=== PATIENT | male | born 1980 | race Caucasian/White ===

== ENCOUNTER 2022-01-06 14:54 | Outpatient (CLI) | payer OTHER, SELFPAY ==
--- NOTE | 2022-01-06 15:01 | RAD_ITS ---
EXAM: XR RIGHT SHOULDER COMPLETE, 2 OR MORE VIEWS CLINICAL INDICATION: PAIN TECHNIQUE: Two or more views of the right shoulder. This report was created using [employer] report generation technology. COMPARISON: None. FINDINGS: BONES/JOINTS: No acute underlying fracture or malalignment. Congenital lateral downsloping of the acromion with narrowing of the subacromial space to 6 mm peripherally. Type II acromion with curved undersurface. No subacromial enthesophyte. Mild degenerative changes of the acromioclavicular joint. No sclerotic or destructive changes observed. SOFT TISSUES: Unremarkable. No soft tissue swelling or gas. No radiopaque foreign body. RAD/Shoulder min 2 Views IMPRESSION: Congenital lateral downsloping of the acromion with narrowing of the subacromial space to 6 mm peripherally. Mild degenerative changes of the acromioclavicular joint. No acute osseous abnormalities. Electronically Signed: Rodger Taveras MD at 3:36 EST ,
== END 2022-01-06 23:59 | disposition home or self-care (01) ==
PROVIDERS: PCP Family Medicine; Referring Provider Family Medicine; Visit Provider Family Medicine
DX: M25.511 Pain in right shoulder (principal)
CPT/HCPCS: 73030

== ENCOUNTER → 2022-02-24 | Outpatient (CLI) | payer OTHER, SELFPAY ==
--- NOTE | 2022-02-24 08:30 | RAD_ITS ---
CLINICAL HISTORY: Male, 41 years old. Right shoulder instability. Probable labral tear. PROCEDURE: ARTHROGRAM - RIGHT SHOULDER CONSENT: The procedure as well as benefits and possible complications including infection and bleeding were explained to the patient. Informed consent was obtained. FLUOROSCOPY TIME (if supplied): (30 seconds) minutes/seconds Injection Information: 10 cc of dilute MRI contrast. Number of images obtained: 3 TECHNIQUE: (All elements of maximal sterile barrier technique followed, including US elements as applicable) The patient was in the supine position. The overlying skin was prepped and draped in the usual sterile fashion. Following local anesthetic application and under direct fluoroscopic guidance, a 22-gauge spinal needle was placed into the shoulder joint. 2 cc of ISOVUE 300 was injected for confirmation. Following this, 10 cc of dilute MRI contrast was injected. MRI will follow. The patient tolerated the procedure well. RAD/Arthrogram Shoulder w/ MRI IMPRESSION: Successful right shoulder arthrogram for MRI examination. The patient tolerated the procedure well. Electronically Signed: Italo Lopez MD at 10:37 EST ,
--- NOTE | 2022-02-24 09:06 | MRI_ITS ---
INDICATION: SHOULDER INSTABILITY, LABRAL TEAR EXAMINATION: MRI - RIGHT MR Shoulder W/ Contrast TECHNIQUE: Multiplanar and multisequence MR images of the right shoulder following intra-articular injection of iodinated contrast. IV Contrast Dosage and Agent: None. COMPARISON: Fluoroscopic arthrogram 02/24/2022. Right shoulder radiograph 01/06/2022 FINDINGS: BONE: No fracture or abnormal bone marrow signal. ACROMIOCLAVICULAR JOINT: Normal alignment. Mild inferolateral acromial tilt. Coracoclavicular ligaments are intact. Minimal degenerative osteophyte formation compatible with age. SUBACROMIAL-SUBDELTOID SPACE: Large volume subacromial subdeltoid bursal contrast noted. GLENOHUMERAL JOINT: Intra-articular contrast present. Articular cartilage intact. Normal alignment. Glenohumeral ligaments are grossly intact. ROTATOR CUFF: Full thickness incomplete tear of supraspinatus tendon along 1.4 centimeters of the anterior footplate with retraction of the anterior fibers approximately 1.1 cm. Infraspinatus, subscapularis, and teres minor appear intact. Mild intramuscular edema along the anterior supraspinatus myotendinous junction. LABRUM: Findings compatible with superior labral anterior posterior tear from the 12:00 to 3:00 position (anterior being 3:00) BICEPS TENDON: The extra-articular biceps tendon is in the bicipital groove. The intra-articular biceps tendon is normal. MRI/Upper Ext Jt Only W/Contrast IMPRESSION: Full-thickness incomplete tear of the anterior fibers supraspinatus tendon with retraction of those anterior fibers. Findings compatible with superior labral anterior posterior tear from the 12:00 to 3:00 position Mild inferolateral acromial tilt which may predispose to impingement. Minimal acromioclavicular degenerative change. Electronically Signed: Michael Sainz MD at 8:16 EST ,
[2022-02-24] MEDS: Lidocaine 2% (5ml sdv) 5 ML VIAL.MPF INFILT (09:10)
== END | disposition home or self-care (01) ==
LOC: RAD 08:25
PROVIDERS: PCP Family Medicine; Visit Provider Orthopaedic Surgery Sports Medicine
DX: M25.311 Other instability, right shoulder (principal); M19.011 Primary osteoarthritis, right shoulder; M75.121 Complete rotator cuff tear or rupture of right shoulder, not specified as traumatic; S43.431A Superior glenoid labrum lesion of right shoulder, initial encounter
CPT/HCPCS: 23350; 73222; 77002; Q9967

== ENCOUNTER 2022-04-09 10:21 | Day surgery (SDC) | payer OTHER, SELFPAY ==
--- NOTE | 2022-04-09 | TESH_PTH ---
PATIENT: KEMAR AVITIA LOC: [facility] [place] U#:[id number] AGE/SX: 42/M ROOM: RE04/09/[address]: Dr. Kyree Mcintyre MD : 1980 BED: DIS: 04/09/2022 SPEC #: [id number] RECD: 04/09/22 14:15 STATUS: NATALY DONN #: [id number] JERAD: 04/09/22 00:[address]: Kyree Mcintyre DEPT: SURGICAL PATHOLOGY RECD BY: Glenroy Burch ENTERED: 04/10/22 08:35 SP TYPE: TENDON OTHR DR: Dr. Liz Hardy MD Tissues: Tendon and tendon sheath, NOS Procedures: Surgery Specimen Level III HEADER OPERATION: Shoulder arthroscopy subacromial decompression rotator cuff PRE-OP DIAGNOSIS: Right rotator cuff tear TISSUE SUBMITTED: Right biceps tendon MICROSCOPIC DIAGNOSIS Right biceps tendon, arthroscopy: A piece of dense fibroconnective tissue with reactive changes. SJ:sam 04/11/2022 MICROSCOPIC DESCRIPTION Slides are reviewed. GROSS DESCRIPTION Received in fixative is one container labeled with the patient's name and designated right biceps tendon. The specimen consists of an elongated piece of agrawal, tendinous tissue measuring 7.5 x 0.7 x 0.5 cm. Teacher Instrumental sections are submitted in one cassette. / SEBASTIAN:sam 04/10/2022 TC:5 [facility]: [id number]
[2022-04-09 10:46] VITALS: BP 118/79; PULSE 74; RESP 18; TEMP 36.9; O2SAT 98; BMI 20.2
[2022-04-09 10:51] LABS: Hematocrit 48.1 % (40-54); Mean Corp Hgb Conc 33.3 g/dL (32-36); Mean Corpuscular Hgb 28.7 pg (27.0-32.0); Mean Corpuscular Volume 86.2 fL (80-94); Mean Platelet Vol. 9.7 fl (6.2-12.0); Platelet Count 256 K/mm3 (150-450); RBC Distribution Width CV 12.9 % (11.6-14.6); RBC Distribution Width SD 40.6 fl (35.1-43.9); Red Blood Count 5.58 M/mm3 (4.6-6.2)
--- NOTE | 2022-04-09 10:51 | PCM.HP.STD ---
HPI - General HPI Narrative KEMAR AVITIA, is a 42 M who presents for right shoulder arthroscopy, RCR, possible biceps tenodesis for slap tear. no changes to h and p. ok to proceed. right shoulder marked. no concerns. narcotic counselling and post op instructions given. MR#: [id number] Acct: [id number] Name:KEMAR GARCIA Rep #: [id number] : 1980 ? ? Provider: Dr. Kyree Mcintyre MD Age/Sex:? 41/M ? ? 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 02/27/22 [History Confirmed 02/27/22] PFSH Medical History?(Updated 02/27/22 @ 14:30 by Kyree Mcintyre MD) Instability of right shoulder joint Right rotator cuff tear Superior labrum uyapvfrj-vv-dqtmwjdpj (SLAP) tear of right shoulder Social History Smoking Status:? Current every day smoker [facility] right shoudler Details: Parts of this documentation were recorded by a scribe, this documentation accurately reflects the service provided and the decisions made by me, Dr. Kyree Mcintyre MD 02/27/22 [id number]. KEMAR AVITIA is a 41 year old M here today for follow-up on right shoulder instability episode and MRI arthrogram.? He had an injury where he fell off a skateboard now few weeks ago.? This is quite a bit of pain on the lateral aspect of the shoulder difficulty with lifting up the arm.? 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 Ortho Exam General General: Yes no acute distress Neurologic: Yes alert and Yes oriented x3 Psychologic: Yes reasonable and appropriate Right Shoulder Skin/Wound: Yes CDI Testing: Positive Hawkin's, Neer's and empty can; Negative Drop Arm SHOULDER: active forward elevation only to 90 degrees refuses to let me push that beyond shoulder height.? He has resisted forward elevation and external rotation strength both 4/5 causing quite a bit of pain on the lateral aspect of the shoulder. Supplemental Info MR#:? [id number] Acct: [id number] Name:? KEMAR AVITIA Rep #: [id number] :?? 1980 M 41 ? From:? ? Michael Sainz MD PCP: Dr. Liz Hardy MD ? Status: REG CLI Study: Upper Ext Jt Only W/Contrast ? Date of Exam: 02/24/22 Exam# [id number] ? Ordering Dr:? Kyree Mcintyre MD INDICATION: SHOULDER INSTABILITY, LABRAL TEAR EXAMINATION: MRI - RIGHT MR Shoulder W/ Contrast TECHNIQUE: Multiplanar and multisequence MR images of the right shoulder following intra-articular injection of iodinated contrast. IV Contrast Dosage and Agent: None. COMPARISON: Fluoroscopic arthrogram 02/24/2022. Right shoulder radiograph 01/06/2022 FINDINGS: BONE: No fracture or abnormal bone marrow signal. ACROMIOCLAVICULAR JOINT: Normal alignment.? Mild inferolateral acromial tilt.? Coracoclavicular ligaments are intact.? Minimal degenerative osteophyte formation compatible with age. SUBACROMIAL-SUBDELTOID SPACE: Large volume subacromial subdeltoid bursal contrast noted. GLENOHUMERAL JOINT: Intra-articular contrast present.? Articular cartilage intact. Normal alignment. Glenohumeral ligaments are grossly intact. ROTATOR CUFF: Full thickness incomplete tear of supraspinatus tendon along 1.4 centimeters of the anterior footplate with retraction of the anterior fibers approximately 1.1 cm. Infraspinatus, subscapularis, and teres minor appear intact.? Mild intramuscular edema along the anterior supraspinatus myotendinous junction. LABRUM: Findings compatible with superior labral anterior posterior tear from the 12:00 to 3:00 position (anterior being 3:00) BICEPS TENDON: The extra-articular biceps tendon is in the bicipital groove. The intra-articular biceps tendon is normal. MRI/Upper Ext Jt Only W/Contrast IMPRESSION: ? Full-thickness incomplete tear of the anterior fibers supraspinatus tendon with retraction of those anterior fibers. ? Findings compatible with superior labral anterior posterior tear from the 12:00 to 3:00 position ? Mild inferolateral acromial tilt which may predispose to impingement. Minimal acromioclavicular degenerative change. ? Electronically Signed: Michael Sainz MD at 8:16 EST , I reviewed the MRI images myself I do agree that there is a full-thickness partial width tear at the leading edge of the supraspinatus tendon that appears an acute tear as well as a likely a SLAP tear. Coding Level of Care Code Off vis,est,level 4 Diagnoses Right rotator cuff tear? M75.101 Superior labrum pneqhkwx-ht-nwlqwewbv (SLAP) tear of right shoulder? S43.431A Time Spent (min) 30 Assessment and Plan Assessment and Plan (1) Right rotator cuff tear: ?Status:?Acute ?Plan: 41-year-old man with an acute injury to his right shoulder a SLAP tear and rotator cuff tear this would generally be recommended for surgery in a young person with a traumatic mechanism.? Other option would be conservative management for rest activity modifications rehabilitation and/or injections and physical therapy.? Discussed the pros and cons risks and benefits of this.? Without surgery this tear may enlarge become worse or become irreparable with time however surgery has its onset of unique complications.? He wishes to go ahead with a right shoulder arthroscopy, subacromial decompression, rotator cuff repair, possible biceps tenodesis. Pros and cons risks and benefits were discussed with the patient including but not limited to infection, pain, stiffness, bleeding, damage to surrounding structures, neurovascular injury, recurrence or retear, failure or wear of hardware or fixation, instability, fracture, deep vein thrombosis and pulmonary embolism, anesthetic risks, patient dissatisfaction, need for further surgery and other risks.? Patient understood and wished to proceed with surgery, and signed the informed consent documentation. [facility] Medical History (Updated 03/26/22 @ 13:51 by Naomi Duran) Alcohol use Dietary restriction Injury of back Instability of right shoulder joint Right rotator cuff tear Smoker Superior labrum cnxsbusp-wp-nrdbxmyyi (SLAP) tear of right shoulder Ulcerative colitis Home Medications acetaminophen 325 mg tablet (Tylenol) 650 mg PO Q4H PRN Pain 03/26/22 [History Last Taken Unknown] naproxen sodium 220 mg tablet (Aleve) 220 mg PO Q12H PRN Pain 03/26/22 [History Last Taken Unknown] Allergy/AdvReac Type Severity Reaction Status Date / Time Penicillins Allergy Unknown Verified 04/09/22 10:45 Surgical History (Updated 03/26/22 @ 13:51 by Naomi Duran) Hx of decompressive lumbar laminectomy Social History Smoking Status: Current every day smoker tobacco type: cigarettes Results Lab / Micro Data Result Diagrams: 04/09/22 10:40
[2022-04-09] MEDS: Lactated Ringers 1,000 ML 15 ML IV ×2 (10:58→12:01)
--- NOTE | 2022-04-09 11:22 | EKG12_ITS ---
Test Reason : PRE OP Blood Pressure : / mmHG Vent. Rate : 071 BPM Atrial Rate : 071 BPM P-R Int : 166 ms QRS Dur : 100 ms QT Int : 374 ms P-R-T Axes : 035 071 060 degrees QTc Int : 406 ms Normal sinus rhythm Normal ECG No previous ECGs available Confirmed by ZACKARY FARIAS, JESSE ([id number]), film editor BLAYNE RODRIGUEZ ([id number]) on 04/15/2022 8:08:02 AM Referred By: Kyree Mcintyre Confirmed By:JESSE RAYMUNDO MD
[2022-04-09] MEDS: Cefazolin 2 GM in 0.9% Normal Saline 100 ML IV (12:01)
[2022-04-09] MEDS: Epinephrine (1 mg/ml) 1 MG/ML VIAL (12:35)
--- NOTE | 2022-04-09 13:46 | OP.PCM_ITS ---
Problems Associated Problem List Diagnoses (1) Superior labrum ljtkvryj-yz-dmoklmbze (SLAP) tear of right shoulder: (2) Right rotator cuff tear: Report of Operation Date of Procedure: 04/09/22 Pre-Operative Diagnosis: right shoulder rotator cuff tear, slap tear Post-Operative Diagnosis: same Surgery/Procedure Performed:: right shoulder arthroscopy, subacromial decompression, rotator cuff repair, subpectoral biceps tenodesis Surgeon: Kyree Mcintyre Type of Anesthesia: Block,Regional and General Anesthesiologist: Jeison Ann Estimated Blood Loss (mL): 50 Description of Procedure: Patient brought to the operating room theater.? Placed supine on the operating room table.? General anesthesia induced.? 2 g IV Ancef administered prior to start of the procedure.? Beanbag positioner used.? Patient placed right side up lateral decubitus.? Axillary roll was used SCDs on the legs all bony prominences appropriately padded.? Upper extremity prepped and draped in the usual sterile fashion with chlorhexidine-based prep solution allowing over 3 minutes drying time prior to draping.? 5 pounds of inline traction with the arm in 35 degrees of abduction was used.? Preoperative timeout performed to confirm the site the patient and the surgery. Began by inserting the arthroscope posteriorly.? Did a diagnostic arthroscopy.? Slap tear from 12-3 oclock as described on MRI. complete leading edge SS tear as on MRI as well. Grade 1-2 mid aspect glenoid cartilage very mild early wear, humeral head normal. subscap and rest of cuff intact. no loose body. Made an inside out spinal needle localized portal just posterior to biceps. Biceps tenotomy with rf ablation. Marked tear with spinal needle. I then inserted the arthroscope into the subacromial space. Complete bursectomy performed. Accessory lateral portal created. Identified the leading edge tear about 1 cm x 1 cm. Cleaned up the edges of the tear gently debrided that. Tear was mobile. Identified the footprint. Used Arthrex power pick instrument to stimulate a bony bed of healing. I passed fiber tape suture in an inverted horizontal mattress. I then used the tap and then placed an Arthrex 4.75 mm swivel lock with the 2 suture ends to approximate the tear. Arthroscope was withdrawn pictures taken throughout the case. I then performed the subpectoral biceps tenodesis in open fashion. Made a small 1.5 inch incision centered over the proximal anteromedial aspect of the humerus. Carried dissection down through skin and subcutaneous tissue achieved meticulous hemostasis. Incised the deltopectoral fascia. Identified the long head of the biceps. I had to mobilize some adhesions proximally using blunt dissection. Deliver the tendon end through the wound. Shortening the tendon. Tendon remnant sent for path. Used the Arthrex metal button.. I used the FiberWire suture looped with a Nagi needle to pass 5 locking throws starting at the musculo tendinous junction, and locking the distal throw. Cut at the splice. Passed the suture ends in opposite directions through the button. Identified the biceps gr oove in the subpectoral area. Cleared away any interposed soft tissue off that. I drilled a unicortical hole with the spade tip drill bit. Irrigated any bone dust. Passed the button flipped the button deliver the tendon to the tunnel and then 1 free end of the suture back through the tendon itself with 5 interrupted half hitches cutting the suture short to lock the tendon down. Wound thoroughly irrigated. Case was terminated and skin cleaned with wet and dry dressing.? Subcutaneous tissue closed with 2-0 Vicryl and skin with 3-0 Monocryl.? Steri-Strips followed by Adaptic 4 x 4 gauze and abdominal pad dressings and cloth tape and an abduction pillow sling was placed onto the upper extremity. Patient woken up from the general anesthetic transferred off the operating room table and taken to postanesthetic care unit in stable condition.? All sponge needle instrument counts were correct no complications.? Plan for the patient in the sling start pendulum exercises immediately.? Follow-up in the office in 2 days time and narcotic counseling given. Complications none Admit VTE Documentation VTE Present on Admission: No VTE Mechan Device Prophylaxis: SCD's VTE Pharm Prophylaxis ordered?: No Reason prophylaxis not ordered:: Treatment Not Indicated Procedures Musculoskeletal 20xxx-29xxx: Other Procedure See Report
--- NOTE | 2022-04-09 13:55 | DCINST_ITS ---
Discharge Instructions Diet Discharge Diet: No restrictions Activity Discharge Activity: May Not Drive Lifting Restrictions: pendulums four times a day, ok to movie elbow hand and wrist but no lifting Dressing / Incision Call your doctor if your incision/area has: Continuous Slow Oozing, Sudden Increased Bleeding, Increased Pain/ Swelling, Increased Redness, Foul Smelling Discharge and Swelling at the incision site Change Dressing in: leave in place till F/U Follow Up Care Please Follow Up With: Kyree Mcintyre MD When: 2 days Test Results: Test results from this visit will be discussed in further detail at your follow- up appointment, if applicable. Discharge Plan Admission Attending Provider: Kyree Mcintyre Primary Care Provider: Liz Hardy Instructions Patient Instructions: After Shoulder Arthroscopy Discharge Orders/Prescriptions Prescriptions: New oxycodone-acetaminophen [Percocet] 5-325 mg tablet 1 tab PO Q4H MDD 6 PRN (Reason: pain) 7 Days Qty: 30 0RF No Action acetaminophen [Tylenol] 325 mg Tablet 650 mg PO Q4H PRN (Reason: Pain) naproxen sodium [Aleve] 220 mg Tablet 220 mg PO Q12H PRN (Reason: Pain) Referrals / Follow Up: Liz Hardy MD [Primary Care Provider] - Kyree Mcintyre MD [Med Staff - Active Staff] - Disposition Disposition (needs filled in before D/C Order can be placed): Home, Self Care
[2022-04-09 14:00] VITALS: BP 118/79; BP 131/87; PULSE 82; RESP 18; TEMP 36.2; O2SAT 98
[2022-04-09 14:15] VITALS: BP 118/79; BP 136/92; PULSE 82; RESP 16; O2SAT 99
[2022-04-09 14:30] VITALS: BP 118/79; BP 130/92; PULSE 82; RESP 16; TEMP 36.8; O2SAT 100
[2022-04-09 14:50] VITALS: BP 118/79; BP 140/82; PULSE 90; RESP 18; TEMP 36.6; O2SAT 99
== END 2022-04-09 15:32 | disposition home or self-care (01) ==
LOC: SDC 10:22 → AC 10:23
PROVIDERS: Anesthesiology; PCP Family Medicine; Referring Provider Orthopaedic Surgery Sports Medicine; Visit Provider Orthopaedic Surgery Sports Medicine
PROC: (CPT 29805; principal; 2022-04-09 11:20)
DX: S46.011A Strain of muscle(s) and tendon(s) of the rotator cuff of right shoulder, initial encounter (principal); S43.431A Superior glenoid labrum lesion of right shoulder, initial encounter; V00.131A Fall from skateboard, initial encounter; Y93.51 Activity, roller skating (inline) and skateboarding; M25.311 Other instability, right shoulder; F17.210 Nicotine dependence, cigarettes, uncomplicated
CPT/HCPCS: 29827; 23430; 01630; 64415; 85027; 88304; 93005; J7120; J2405

== ENCOUNTER 2023-06-26 07:33 | Emergency (ER) | payer OTHER, SELFPAY ==
[2023-06-26] VITALS (7 sets, daily range): BP systolic 119–148; BP diastolic 73–104; PULSE 58–73; RESP 9–22; TEMP 35.9–36.8; O2SAT 97–99; BMI 21.4
--- NOTE | 2023-06-26 08:15 | EKG12_ITS ---
Test Reason : Blood Pressure : / mmHG Vent. Rate : 066 BPM Atrial Rate : 066 BPM P-R Int : 172 ms QRS Dur : 100 ms QT Int : 374 ms P-R-T Axes : 032 055 069 degrees QTc Int : 392 ms Normal sinus rhythm ST elevation, consider early repolarization Borderline ECG Confirmed by Mono Yoder ([id number]), editor managing newspaper CHAN MUNSON ([id number]) on 06/29/2023 8:43:53 AM Referred By: Confirmed By:Mono Yoder
--- NOTE | 2023-06-26 08:16 | EX.ED.DYSGE1 ---
HPI History of Present Illness Chief Complaint: Chest Pain Informant: patient and parent Narrative Narrative: 43-year-old male presenting to the emergency room with chest pain neck throat and head pain. Patient states yesterday he felt fine. Around 0100 hrs. this morning he woke with pain in his chest. He thought it was heartburn and took some Tums. He noticed whenever he takes a deep breath the pain goes from his mid sternum up into his throat and jaw back of the neck and into the temples. Denies any vision arm or leg weakness or sensory changes but states that he does feel clammy and slightly tingly. He states that moving his head and rotation and flexion extension also makes his symptoms worse. He notes soreness to touch of the anterior chest wall posterior neck and left scapular region. He is a smoker. He takes no prescription medications. He notes no change in his ability to do his work. He denies of shortness of breath fever change in cough. No vomiting. He has a history of colitis no change in bowel movements. No abdominal pain. No known injuries. [facility] Medical History Alcohol use Injury of back Dietary restriction Ulcerative colitis Smoker Superior labrum hpnhyblq-cp-sgjkdejzn (SLAP) tear of right shoulder Right rotator cuff tear Instability of right shoulder joint Home Medications ?Medication ?Instructions ?Recorded ?Last Taken ?Type hydrocodone-acetaminophen 5-325mg 1 tab PO Q6H PRN PRN Pain 3 days 06/26/23 Unknown Rx 5mg-325mg #10 TABLETS prednisone 20 mg tablet 60 mg (3 x 20 mg) PO DAILY #15 06/26/23 Unknown Rx TABLETS Allergy/AdvReac Type Severity Reaction Status Date / Time Penicillins Allergy Unknown Verified 04/25/22 09:33 Surgical History Hx of decompressive lumbar laminectomy Social History Smoking Status: Current every day smoker tobacco type: cigarettes ROS ROS ED Constitutional Constitutional ED: Denies chills, fever(s) or weight loss Eyes Eyes: Denies change in vision or diplopia ENT ENT ED: Denies ear pain, rhinorrhea or sore throat Cardiovascular Cardiovascular: Reports chest pain; Denies orthopnea, palpitations or racing heartbeat Respiratory/Chest Respiratory/Chest: Denies cough, dyspnea or orthopnea Gastrointestinal Gastrointestinal: Denies abdominal pain, diarrhea, nausea or vomiting Genitourinary Genitourinary ED: Denies dysuria, hematuria or urinary frequency Musculoskeletal Musculoskeletal: Reports back pain and neck pain; Denies arthralgias or myalgias Integumentary Reports other Details: Sensation of feeling clammy ; Denies abscess or rash Neurologic Neurologic: Reports headache(s) and other Details: Tingly sensation in all 4 extremities specifically no muscle weakness or loss of sensation. ; Denies weakness Psychiatric Psychiatric: Denies anxiety, depression, suicidal ideation or suicidal thoughts Endocrine Endocrinology: Denies polydipsia, polyphagia or polyuria Allergic/Immunologic Allergic/Immunologic ED: Denies mouth swelling, tongue swelling or urticaria EXAM Physical Exam Const Vital Signs: 06/26/23 07:35 06/26/23 07:40 06/26/23 07:43 Temperature 96.6 F L Temperature Source Temporal Pulse Rate 73 70 Respiratory Rate 22 H 20 H Respiratory Effort Normal Non-Labored Blood Pressure 137/104 H 148/90 H Blood Pressure Mean 115 109 Pulse Ox 98 98 Oxygen Delivery Method Room Air Room Air 06/26/23 08:30 06/26/23 09:00 06/26/23 10:00 Temperature Temperature Source Pulse Rate 61 58 L 63 Respiratory Rate 14 9 L 20 H Respiratory Effort Blood Pressure 124/90 H 131/86 H 121/73 H Blood Pressure Mean 101 99 88 Pulse Ox 97 99 97 Oxygen Delivery Method 06/26/23 11:00 06/26/23 12:00 Temperature 98.2 F Temperature Source Pulse Rate 60 58 L Respiratory Rate 10 L 14 Respiratory Effort Blood Pressure 119/90 H 124/78 H Blood Pressure Mean 99 93 Pulse Ox 98 99 Oxygen Delivery Method Positive well nourished and well developed General Appearance ED: well developed HEENT Reports normocephalic, head/scalp atraumatic and moist mucous membranes Eyes PERRL and EOMs intact bilaterally Neck no lymphadenopathy, supple and no JVD Chest Wall Chest Narrative: Tender palpation of the anterior chest wall. Resp normal respiratory effort and clear to auscultation bilaterally Cardio regular rate, regular rhythm and no murmurs GI normal to inspection, nondistended, normoactive bowel sounds and non-tender Palpation: soft Back/Spine no CVA tenderness and normal ROM Back/Spine Narrative: Patient reports left periscapular muscular tenderness extending up into the posterior neck which is also tender to palpation. He notes his symptomology is worse when he moves his neck or takes a deep breath. Extremity normal to inspection General Extremety ED: Negative for edema General Extremity: Negative for edema Neuro oriented x3 and CN's II-XII intact bilaterally Sensorium / Orientation: alert Motor Exam: strength 5/5 throughout Psych mental status grossly normal Mood & Affect: Negative for depressed or tearful Skin no rashes or lesions noted and no wounds MDM MDM MDM Narrative Medical decision making narrative: I independent interpretation of the chest x-ray is no acute process. CT of the head neck demonstrates no aneurysm or dissection. White count 9.5 with hemoglobin 15.7. D-dimer is normal. 2 sets of cardiac enzymes are normal. His EKG is nonischemic. Normal creatinine normal electrolytes. Patient received a dose of Toradol and IV fluids. Patient is now recounting several things that may have aggravated his musculature. He notes a very big sneeze. He also was pitching willful balls does not recall any 1 particular thing doing that that would have hurt it. I do wonder if there is a musculoskeletal component to this resulting in the reproducible chest pain with palpation in the neck pain with movement perhaps with a frontal headache and something to do with more of a tension-like headache. I am not seeing an obvious emergency at this time. I would recommend follow-up. And write for some anti-inflammatories and pain medication. He notes understanding of the plan and will return if any new symptoms or worsening. History & Record Review Discussion w/independent historian: Patient and Family Lab Data Attestation: I reviewed the patient's lab results. Labs: Laboratory Results - last 24 hr 06/26/23 06/26/23 07:40 09:50 WBC 9.5 RBC 5.40 Hgb 15.7 Hct 48.0 MCV 88.9 MCH 29.1 MCHC 32.7 RDW Std Deviation 43.8 RDW Coeff of Brianne 13.4 Plt Count 224 MPV 11.3 Immature Gran % (Auto) 0.200 Neut % (Auto) 68.9 Lymph % (Auto) 18.2 L [place] % (Auto) 9.7 Eos % (Auto) 2.3 Baso % (Auto) 0.7 Absolute Neuts (auto) 6.6 Absolute Lymphs (auto) 1.74 Nucleated RBC % 0 PT 13.8 INR 1.1 APTT 29.5 D-Dimer Quant (PE/DVT) < 0.27 L Sodium 138 Potassium 4.0 Chloride 108 H Carbon Dioxide 29.0 Anion Gap 1 L BUN 15 Creatinine 0.91 Estim Creat Clear Calc 112.66 Est GFR (MDRD) Af Amer 115 Est GFR (MDRD) Non-Af 95 BUN/Creatinine Ratio 16.4 Glucose 135 H Calcium 9.2 Troponin I High Sens 5 4 Radiography Diagnostic Testing: Clinical Impression(s) from Imaging Studies Chest X-Ray 06/26/23 08:20 IMPRESSION: No acute abnormality is seen. Electronically Signed: Italo Lopez MD at 8:45 EDT , Head/Neck CTA 06/26/23 09:49 IMPRESSION: Normal CTA Head and neck with contrast. Electronically Signed: Italo Lopez MD at 10:24 EDT , EKG Initial EKG: Attestation: I personally reviewed and interpreted this EKG as follows: Comments: Normal sinus rhythm ventricular rate of 66 bpm Prior EKG tracings: available for review Prior: Unchanged (Compared to EKG dated 09 April 2022) Discharge Plan Triage Chief Complaint: Chest Pain ED Provider: Miguel Rice Dx/Rx/DC Orders Clinical Impression: Chest pain, Back pain, Neck pain, Headache Instructions: ED Chest Pain, Uncertain Cause Prescriptions: New hydrocodone-acetaminophen 5-325 mg tablet 1 tab PO Q6H PRN PRN (Reason: Pain) 3 Days Qty: 10 0RF prednisone 20 mg tablet 60 mg PO DAILY Qty: 15 0RF Primary Care Provider: Liz Hardy Referrals: Liz Hardy MD [Primary Care Provider] - 3-5 Days if not improving Activity Restrictions/Additional Instructions: I would recommend taking Motrin 600 mg every 6 hours as needed for pain. Prescriptions as directed Return if any new symptoms or concerns. Follow-up primary care 3 to 5 days if no improvement Print Language: Nepali Disposition Disposition: Home, Self Care Discharge Date/Time: 06/26/23 12:18
--- NOTE | 2023-06-26 08:20 | RAD_ITS ---
STUDY: X-RAY CHEST REASON FOR EXAM: Male, 43 years old. Chest pain TECHNIQUE: Single AP portable view of the chest. COMPARISON: Comparison is made with prior study June 20, 2015. FINDINGS: EKG electrodes are seen. The lungs are clear and expanded. There is no demonstrated pleural abnormality. Normal size heart. Normal mediastinum and kelly. Normal visualized pulmonary arteries. Normal visualized aortic arch and descending thoracic aorta. Normal visualized thoracic spine. Healed left rib fractures. There is no demonstrated abnormality of the visualized soft tissue structures of the upper abdomen. RAD/Chest 1 View (Portable) IMPRESSION: No acute abnormality is seen. Electronically Signed: Italo Lopez MD at 8:45 EDT ,
[2023-06-26] MEDS: Ketorolac 30 MG/ML Syringe IV (08:24)
[2023-06-26] MEDS: 0.9% Normal Saline (1000mL) 1,000 ML 1000 ML IV (08:25)
[2023-06-26 08:35] LABS: Absolute Lymphocyte Count 1.74 X10^3/uL (0.83-4.51); Absolute Neutrophil Count 6.6 X10^3/uL (2.0-7.7); Basophil# 0.07 X10^3/uL; Basophil% 0.7 % (0-1); Eosinophil# 0.22 X10^3/uL; Eosinophils% 2.3 % (0-5); Hemoglobin 15.7 g/dL (13.0-16.5); Lymphocyte # 1.74 X10^3/ul (0.83-4.51); Lymphocyte % 18.2 % (19-41); Mean Corp Hgb Conc 32.7 g/dL (32-36); Mean Corpuscular Hgb 29.1 pg (27.0-32.0); Mean Corpuscular Volume 88.9 fL (80-94); Mean Platelet Vol. 11.3 fl (6.2-12.0); Monocyte# 0.93 X10^3/uL; Monocyte% 9.7 % (0-10); NRBC Flagged by Analyzer 0 % (0-5); Neutrophil # 6.56 X10^3/uL (2.7-7.7); Neutrophil % 68.9 % (47-70); Platelet Count 224 K/mm3 (150-450); RBC Distribution Width CV 13.4 % (11.6-14.6); RBC Distribution Width SD 43.8 fl (35.1-43.9); White Blood Count 9.5 K/mm3 (4.4-11.0)
[2023-06-26 08:47] LABS: Anion Gap 1 (5-15); BUN 15 mg/dL (7-18); BUN/Creat Ratio 16.4 RATIO (10-20); Calcium,Total 9.2 mg/dL (8.5-10.1); Chloride 108 mmol/L (98-107); Creatinine, Serum 0.91 mg/dL (0.70-1.30); EST Glomerular Filtration Rate 95 mL/min (>60); Est Glom Filt Rate - Afr Amer 115 mL/min (>60); Estimated Creatinine Clearance 112.66 ml/min; Glucose 135 mg/dL (74-106); Sodium Level 138 mmol/L (136-145); Troponin-I HS 5 pg/mL (3.0-78.0)
[2023-06-26 09:18] LABS: International Normalized Ratio 1.1; Prothrombin Time (Protime)PT. 13.8 SECONDS (11.7-14.9)
[2023-06-26 09:19] LABS: Partial Thromboplast Time 29.5 Seconds (24.1-36.2)
[2023-06-26 09:36] LABS: D-Dimer Quantitative (DVT/PE) < 0.27 FEU/ug/m (0.27-0.49)
--- NOTE | 2023-06-26 09:49 | CT_ITS ---
STUDY: CTA HEAD AND NECK WITH CONTRAST REASON FOR EXAM: Male, 43 years old. Chest pain with radiation to the neck. RADIATION DOSAGE (If Supplied By Facility): CTDIvol = ( 33.55 ) mGy, DLP = ( 1613.20 ) mGycm TECHNIQUE: CT angiography was performed with a multi-detector CT scanner. Data acquisition was obtained from the skull base through the vertex following intravenous administration of IV 100mL Isovue-370. MIP images were reconstructed from the axial data set. Post-processing of the angiographic images was performed, with multiplanar reformation and 3D reconstruction. Individualized dose optimization techniques were used for this CT. COMPARISON: No relevant priors. FINDINGS: Normal bilateral petrous carotid arteries. Normal right cavernous carotid artery with a normal supraclinoid bifurcation. Normal left cavernous carotid artery with a normal supraclinoid bifurcation. Normal right A1 segments of the anterior cerebral artery. There is hypoplastic development of the left A1 segment of the anterior cerebral arteries with an atretic but intact artery. Normal intact anterior communicating artery (ACOM). Normal bilateral A2 segments of the anterior cerebral arteries. Normal right M1 and M2 segments of the middle cerebral arteries, with a normal M1 bifurcation. Normal left M1 and M2 segments of the middle cerebral arteries, with a normal M1 bifurcation. Normal right posterior communicating artery (PCOM). Normal left posterior communicating artery (PCOM). Normal bilateral vertebral arteries. Normal basilar artery with a normal basilar bifurcation. The visualized bilateral superior cerebellar (SCA) arteries are normal. Normal bilateral P1, P2 and visualized P3 segments of the posterior cerebral arteries. There is no demonstrated aneurysm of the ho-chunk of [place]. There is no demonstrated abnormality of the visualized brain. AORTIC ARCH: Normal visualized aortic arch. Normal origins of the brachiocephalic, left common carotid, and left subclavian arteries. RIGHT CAROTID ARTERIES: Normal right common carotid artery (CCA). Normal right common carotid bulb. Normal origin of the right internal carotid (ICA) artery without a hemodynamically significant stenosis. Normal visualized cervical portion of the right internal carotid artery. Normal origin of the right external carotid artery (ECA). LEFT CAROTID ARTERIES: Normal left common carotid artery (CCA). Normal left common carotid bulb. Normal origin of the left internal carotid (ICA) artery without a hemodynamically significant stenosis. Normal visualized cervical portion of the left internal carotid artery. Normal origin of the left external carotid artery (ECA). VERTEBRAL ARTERIES: Normal bilateral vertebral arteries. CT/CTA Head AND Neck W/ Contrast IMPRESSION: Normal CTA Head and neck with contrast. Electronically Signed: Italo Lopez MD at 10:24 EDT ,
[2023-06-26 10:22] LABS: Troponin-I HS 4 pg/mL (3.0-78.0)
== END 2023-06-26 12:18 | disposition home or self-care (01) ==
PROVIDERS: Emergency Provider Emergency Medicine; PCP Family Medicine; Visit Provider Emergency Medicine
DX: R07.9 Chest pain, unspecified (principal); F17.210 Nicotine dependence, cigarettes, uncomplicated; R51.9 Headache, unspecified; M54.2 Cervicalgia
CPT/HCPCS: 70496; 70498; 71045; 80048; 84484; 85025; 85379; 85610; 85730; 93005; 96361; 96374; 99284; J7030; Q9967; A4216

== ENCOUNTER 2024-06-26 06:20 | Emergency (ER) | payer BC, SELFPAY ==
[2024-06-26 06:21] VITALS: BP 150/97; PULSE 86; RESP 18; TEMP 36.9; O2SAT 96; BMI 20.7
[2024-06-26 06:25] VITALS: BP 150/97; PULSE 89; RESP 18; TEMP 36.9; O2SAT 98
--- NOTE | 2024-06-26 06:39 | ED.VIS.DENTA ---
HPI History of Present Illness Chief Complaint: Dental Informant: patient Narrative Narrative: Facial swelling that started 1-2 days ago, woke up this morning much more swollen and painful/10. No fevers, chills, systemic symptoms. Feels like it started with a toothache. No ear pain, rhinorrhea, vision trouble. Right maxillary tooth affected. [facility] Medical History Alcohol use Injury of back Dietary restriction Ulcerative colitis Smoker Superior labrum wlmmnhjp-oi-uexctipon (SLAP) tear of right shoulder Right rotator cuff tear Instability of right shoulder joint Home Medications ?Medication ?Instructions ?Recorded ?Last Taken ?Type NK 06/26/24 Unknown History clindamycin HCl 300 mg capsule 300 mg PO Q6H #40 CAPSULES 06/26/24 Unknown Rx (Cleocin HCl) hydrocodone-acetaminophen 5-325mg 1 tab PO Q4H PRN PRN Pain 2 days 06/26/24 Unknown Rx 5mg-325mg #10 TABLETS Allergy/AdvReac Type Severity Reaction Status Date / Time Penicillins Allergy Unknown Verified 06/26/24 06:21 Family History no significant family his Surgical History Hx of decompressive lumbar laminectomy Social History Smoking Status: Current every day smoker tobacco type: cigarettes ROS ROS ED Constitutional Constitutional ED: Denies chills or fever(s) Eyes Eyes: Denies change in vision or double vision ENT ENT ED: Reports dental pain; Denies sinus pain or throat swelling Cardiovascular Cardiovascular: Denies chest pain or palpitations Respiratory/Chest Respiratory/Chest: Denies cough or dyspnea Integumentary Denies abscess or rash Neurologic Neurologic: Denies headache(s), paresthesias or weakness EXAM Physical Exam Const Vital Signs: 06/26/24 06:21 06/26/24 06:25 Temperature 98.4 F 98.4 F Temperature Source Oral Oral Pulse Rate 86 89 Respiratory Rate 18 18 Blood Pressure 150/97 H 150/97 H Blood Pressure Mean 114 114 Pulse Ox 96 98 Oxygen Delivery Method Room Air Room Air Positive well nourished and well developed General Appearance ED: well developed and NAD HEENT HEENT Narrative: Obvious external facial swelling/asymmetry, he is swollen in the right cheek area. No palpable fluctuance. No external signs of cellulitis or periorbital involvement. No rhinorrhea. No parotid tenderness or discharge from Stensen's duct. Mild trismus. Teeth #1 and 2 appear to be decayed down to the gumline and he has an associated abscess vamp liner to the gingiva in this area. No spontaneous discharge expressible, however the area is very tender. Gingiva normal. No bleeding from the dentition. Face and Sinus: sinuses nontender Throat: posterior oropharynx normal Eyes PERRL and EOMs intact bilaterally Neck no lymphadenopathy and supple Resp normal respiratory effort Neuro oriented x3 and CN's II-XII intact bilaterally Sensorium / Orientation: alert Gait (Neuro): normal gait Psych mental status grossly normal and thought process normal Skin no rashes or lesions noted and no wounds MDM MDM MDM Narrative Medical decision making narrative: Patient amenable to needle aspiration. We discussed the pros and cons, the cons being pain and possibly performing the procedure without obtaining any pus. See the procedure note, we were able to withdraw some pus. He is allergic to penicillin, so he will be placed on clindamycin, we discussed taking probiotics with this to prevent antibiotic associated diarrhea. He was given ibuprofen here and a prescription for some hydrocodone in case he needs it. Plans to follow-up with dentistry. Procedures Other Procedures Procedure(s): Dental abscess simple drainage/aspiration: After informed consent verbally from the patient, 2-second spray of 20% benzocaine was applied to the affected area intraorally, followed by needle aspiration with a 21-gauge needle. About 0.75 cc of pus was able to be aspirated. Tolerated well by the patient no complications, he rinsed with ice water afterwards and bleeding was minimal. Discharge Plan Triage Chief Complaint: Dental ED Provider: Tony Schmidt Dx/Rx/DC Orders Clinical Impression: Dental abscess Instructions: Dental Abscess Prescriptions: New clindamycin HCl [Cleocin HCl] 300 mg capsule 300 mg PO Q6H Qty: 40 0RF hydrocodone-acetaminophen 5-325 mg tablet 1 tab PO Q4H PRN PRN (Reason: Pain) 2 Days Qty: 10 0RF No Action NK Primary Care Provider: Liz Hardy Referrals: Dentist,Your [STAFF PHYSICIAN] - As soon as possible Print Language: Lithuanian Disposition Disposition: Home, Self Care
[2024-06-26] MEDS: Ibuprofen 600 MG Tablet PO (06:45)
[2024-06-26] MEDS: Clindamycin HCl 150 MG Capsule 300 MG PO (06:46)
[2024-06-26 06:47] VITALS: BP 128/92; PULSE 83; RESP 16; TEMP 36.7; O2SAT 98
== END 2024-06-26 06:50 | disposition home or self-care (01) ==
LOC: ED 06:49
PROVIDERS: Emergency Provider Emergency Medicine; PCP Family Medicine; Visit Provider Emergency Medicine
DX: K04.7 Periapical abscess without sinus (principal); F17.210 Nicotine dependence, cigarettes, uncomplicated
CPT/HCPCS: 41800; 99283